=== PATIENT | male | born 2000 | race Asian ===

== ENCOUNTER 2018-05-01 00:14 | Emergency (ER) | payer OTHER ==
[~2018-05-01] VITALS: Ht 160 cm; Wt 61.4 kg
[~2018-05-01 00:14] MED LIST: ALBU17AE16 IH; ALBU2.5V2 IH; CETI-290 PO; FLUT110HFA IH; MOME17N NS; MONT10TA21 PO; NEBU1KIT
[2018-05-01] MEDS ORDERED: AMOX500C2 PO (00:28)
[2018-05-01] MEDS ORDERED: PB/HYOSCY/ATR/SCOP/LIDO/MAALOX 55 ML BOTTLE PO ONE (01:15)
[2018-05-01 02:40] VITALS: BP 109/71
== END 2018-05-01 02:53 | disposition home or self-care (01) ==
LOC: EMS 00:15
DX: J98.01 Acute bronchospasm (principal); J45.909 Unspecified asthma, uncomplicated

== ENCOUNTER 2022-07-09 01:55 | Emergency (ER) | payer OTHER ==
[~2022-07-09] VITALS: Ht 170.2 cm; Wt 68.3 kg
[~2022-07-09 01:55] MED LIST changes: +AMOX500C2 PO; -CETI-290 PO; +CETI-450 PO; -FLUT110HFA IH; -MOME17N NS; +MOME17SP4 NS; +MONT-35 PO; -MONT10TA21 PO
[2022-07-09] MEDS ORDERED: ACETAMINOPHEN 1000 MG/ISO-OSM 100 ML IV ONE (02:45)
[2022-07-09] MEDS ORDERED: 0.9% SODIUM CHLORIDE 10 ML SYRINGE IVP PRN (02:45)
[2022-07-09] MEDS ORDERED: SODIUM CHLORIDE 0.9% 2,050 ML IV ONE (02:45)
[2022-07-09 02:54] LABS: BASOPHILS % (AUTO) 0.2 % (0.0-2.0); EOSINOPHILS % (AUTO) 0.2 % (1.0-6.0); HEMATOCRIT 45.5 % (41-53); HEMOGLOBIN 15.7 g/dL (13.5-17.5); LYMPHOCYTES # (AUTO) 1.3 K/uL (1.0-4.8); LYMPHOCYTES % (AUTO) 16.9 % (22.0-44.0); MEAN CORPUSCULAR HEMOGLOBIN 29.8 pg (26.0-34.0); MEAN CORPUSCULAR HGB CONC 34.6 G/dL (31.0-37.0); MEAN CORPUSCULAR VOLUME 86 fL (80-100); MONOCYTES # (AUTO) 1.3 K/uL (0.1-1.0); MONOCYTES % (AUTO) 16.1 % (2.0-9.0); NEUTROPHILS # (AUTO) 5.2 K/uL (1.8-7.7); NEUTROPHILS % (AUTO) 66.6 % (40.0-70.0); PLATELET COUNT (AUTO) 209 K/uL (150-450); RED BLOOD CELL COUNT(AUTO) 5.28 MIL/uL (4.50-5.90)
[2022-07-09 02:59] LABS: COVID AG,FIA SOURCE NASAL SWAB
[2022-07-09 03:01] LABS: ANION GAP 7 mmol/L (8-16); CALCIUM, TOTAL 8.7 mg/dL (8.8-10.5); CARBON DIOXIDE 31 mmol/L (22-29); CHLORIDE 100 mmol/L (98-107); CREATININE 1.21 mg/dL (0.60-1.30); GLUCOSE,RANDOM 118 mg/dL (70-110); POTASSIUM 3.6 mmol/L (3.5-5.1); SODIUM SERUM 138 mmol/L (136-145); UREA NITROGEN, BLOOD 9 mg/dL (7-18)
[2022-07-09 03:04] LABS: INR 1.1 (0.9-1.1); PROTHROMBIN TIME 11.5 SEC (9.4-11.6)
[2022-07-09 03:07] LABS: ALANINE AMINOTRANSFERASE 64 U/L (12-78); ALBUMIN 4.1 g/dL (3.4-5.0); ALKALINE PHOSPHATASE 94 U/L (46-116); ASPARTATE AMINOTRANSFERASE 37 U/L (15-37); BILIRUBIN,TOTAL 0.5 mg/dL (0.1-1.0); TOTAL PROTEIN, SERUM 8.3 g/dL (6.4-8.2)
[2022-07-09 03:10] LABS: LACTIC ACID 1.4 mmol/L (0.4-2.0)
[2022-07-09 03:31] LABS: GLOMERULAR FILTR. RATE CALC > 60 mL/min (>60)
[2022-07-09 03:55] LABS: INFLUENZA TYPE A NEGATIVE FOR TYPE A (NEGATIVE); INFLUENZA TYPE B NEGATIVE FOR TYPE B (NEGATIVE)
[2022-07-09 04:27] LABS: APPEARANCE,URINE CLEAR (CLEAR); BILIRUBIN,URINE NEGATIVE (NEGATIVE); GLUCOSE, URINE (UA) NEGATIVE (NEGATIVE); KETONES,URINE NEGATIVE (NEGATIVE); LEUKOCYTE ESTERASE ,URINE NEGATIVE (NEGATIVE); NITRATE,URINE NEGATIVE (NEGATIVE); OCCULT BLOOD,URINE NEGATIVE (NEGATIVE); PROTEIN,URINE NEGATIVE (NEGATIVE); SPECIFIC GRAVITIY, URINE 1.006 (1.003-1.030); UROBILINOGEN,URINE <=1.0 mg/dL (<=1.0)
[2022-07-09 05:15] VITALS: BP 123/74
[2022-07-09] MEDS ORDERED: NIRM1TAB PO (05:23)
== END 2022-07-09 05:31 | disposition left against medical advice (07) ==
LOC: EMS 01:56
DX: U07.1 COVID-19 (principal); R00.0 Tachycardia, unspecified; R50.9 Fever, unspecified; R94.31 Abnormal electrocardiogram [ECG] [EKG]; J45.909 Unspecified asthma, uncomplicated; Z98.890 Other specified postprocedural states
CPT/HCPCS: 99285; 96365; 71045; 87426; 80053; 81003; 83605; 84484; 85025; 85610; 87040; 87804; 36415; 93005; 84145; U0003; J0131; C9803